=== PATIENT | female | born 1985 | race Caucasian/White ===

== ENCOUNTER 2019-04-22 13:30 | Inpatient (IN) | payer OTHER ==
[~2019-04-22] VITALS: Ht 157.5 cm; Wt 86.0 kg
[2019-04-22] MEDS ORDERED: PREN1TAB60 PO (13:48)
[2019-04-22] MEDS ORDERED: ASPI-515 PO (13:48)
[2019-04-22] MEDS ORDERED: CALC200T3 PO (13:48)
[2019-04-22] MEDS ORDERED: CALC1CAP8 PO (13:48)
[2019-04-22] MEDS ORDERED: FOLI-17 PO (13:48)
[2019-04-22 13:49] VITALS: BP 112/69
[2019-04-22] MEDS ORDERED: BETAMETHASONE 6 MG/ML, 5ML IM ONE (14:23)
[2019-04-22] MEDS: BETAMETHASONE 6 MG/ML, 5ML IM SCH (14:29)
[2019-04-22] MEDS ORDERED: DOCUSATE 100 MG CAPSULE PO PRN (14:30)
[2019-04-22] MEDS ORDERED: CALCIUM CARBONATE 500 MG TAB.CHEW PO PRN (14:30)
[2019-04-22 17:58] LABS: BASOPHILS # (AUTO) 0.01 x10^3/uL (0-0.1); BASOPHILS % (AUTO) 0 % (0-1); EOSINOPHILS # (AUTO) 0.01 x10^3/uL (0-0.4); EOSINOPHILS % (AUTO) 0 % (1-7); LYMPHOCYTES # (AUTO) 0.83 x10^3/uL (1-3.4); LYMPHOCYTES % (AUTO) 7 % (22-44); MD NO; MEAN CORPUSCULAR HEMOGLOBIN 31.3 pg (27.0-34.8); MEAN CORPUSCULAR HGB CONC 33.2 g/dL (32.4-35.8); MEAN CORPUSCULAR VOLUME 94.2 fL (80-100); MEAN PLATELET VOLUME 10.2 fL (7.4-10.4); MONOCYTES # (AUTO) 0.19 x10^3/uL (0.2-0.8); MONOCYTES % (AUTO) 2 % (2-9); NEUTROPHILS # (AUTO) 10.31 x10^3/uL (1.8-6.8); NEUTROPHILS % (AUTO) 91 % (42-75); PLATELET COUNT 183 x10^3/uL (130-400); RED BLOOD COUNT 4.15 x10^6/uL (3.82-5.3); RED CELL DISTRIBUTION WIDTH 14.1 % (9.6-15.2)
[2019-04-22] MEDS: SODIUM CHLORIDE FLUSH 3ML SYRINGE IVF SCH (21:00)
[2019-04-22 21:26] LABS: MICROSCOPIC NOT IND
[2019-04-23] MEDS ORDERED: ACETAMINOPHEN 325 MG TABLET ONE (01:49)
[2019-04-23] MEDS ORDERED: ACETAMINOPHEN 325 MG TABLET PO ONE (02:00)
[2019-04-23] MEDS ORDERED: TERBUTALINE 1 MG/ML, 1ML SQ ONE (07:30)
[2019-04-23] MEDS ORDERED: PRENATAL VIT/IRON/FA 1 EACH TABLET ONE (08:21)
[2019-04-23] MEDS ORDERED: ASPIRIN 81 MG TABLET EC ONE (08:21)
[2019-04-23] MEDS ORDERED: ASPIRIN 81 MG TABLET CHEW ONE (08:29)
[2019-04-23] MEDS: SODIUM CHLORIDE FLUSH 3ML SYRINGE IVF SCH (08:35)
[2019-04-23] MEDS ORDERED: PRENATAL VIT/IRON/FA 1 EACH TABLET PO SCH (09:00)
[2019-04-23] MEDS ORDERED: ASPIRIN 81 MG TABLET CHEW PO SCH (09:00)
[2019-04-23 09:45] LABS: CLUE CELLS NONE SEEN (NONE SEEN); WET PREP WBCS MODERATE (FEW)
[2019-04-23] MEDS ORDERED: CALCIUM CARBONATE 500 MG TAB.CHEW ONE (10:06)
[2019-04-23 10:17] LABS: FREE T4 (FREE THYROXINE) 0.99 ng/dL (0.76-1.46)
[2019-04-23] MEDS: BETAMETHASONE 6 MG/ML, 5ML IM SCH (14:28)
== END 2019-04-23 16:17 | disposition home or self-care (01) | DRG 832 ==
LOC: LDIP 13:30
PROVIDERS: ADMIT Obstetrics & Gynecology; ATTEND Obstetrics & Gynecology
DX: O36.832 Maternal care for abnormalities of the fetal heart rate or rhythm, second trimester (principal); O44.42 Low lying placenta NOS or without hemorrhage, second trimester; O30.032 Twin pregnancy, monochorionic/diamniotic, second trimester; O36.5922 Maternal care for other known or suspected poor fetal growth, second trimester, fetus 2; O43.192 Other malformation of placenta, second trimester; Z3A.26 26 weeks gestation of pregnancy
CPT/HCPCS: 36415; 76817; 81003; 84439; 84443; 85025; 86592; 86850; 86900; 87081; 87086; 87210; 87808; G0378; J0702

== ENCOUNTER 2019-05-13 12:57 | Observation (INO) | payer OTHER ==
[~2019-05-13] VITALS: Ht 157.5 cm; Wt 87.7 kg
[~2019-05-13 12:57] MED LIST: ASPI-515 PO; CALC1CAP8 PO; CALC200T3 PO; FOLI-17 PO; PREN1TAB60 PO
[2019-05-13 13:43] LABS: MICROSCOPIC NOT IND
[2019-05-13] MEDS ORDERED: TERBUTALINE 1 MG/ML, 1ML ONE (15:09)
[2019-05-13 15:30] VITALS: BP 122/64
[2019-05-13] MEDS ORDERED: LACTATED RINGERS 500 ML IVBOLUS ONE (15:30)
[2019-05-13] MEDS ORDERED: TERBUTALINE 1 MG/ML, 1ML SQ ONE (15:30)
[2019-05-13] MEDS ORDERED: PLEASE ENTER HEIGHT AND WEIGHT MC SCH (15:30)
[2019-05-13] MEDS ORDERED: LACTATED RINGERS 1,000 ML IVBOLUS ONE (18:30)
== END 2019-05-13 19:55 | disposition home or self-care (01) ==
LOC: LDOP 12:57 → LDIP 14:37
PROVIDERS: ADMIT Obstetrics & Gynecology; ATTEND Obstetrics & Gynecology
DX: O36.5930 Maternal care for other known or suspected poor fetal growth, third trimester, not applicable or unspecified (principal); O99.89 Other specified diseases and conditions complicating pregnancy, childbirth and the puerperium; O30.033 Twin pregnancy, monochorionic/diamniotic, third trimester; M54.5 Low back pain; Z3A.29 29 weeks gestation of pregnancy; Z79.899 Other long term (current) drug therapy
CPT/HCPCS: 59025; 81003; 87086; 96372; 99211; G0378; J3105; J7120; 96360; 96361; G0463

== ENCOUNTER 2019-05-15 13:21 | Outpatient (CLI) | payer OTHER ==
[~2019-05-15] VITALS: Ht 157.5 cm; Wt 87.7 kg
[2019-05-15] MEDS ORDERED: ONDANSETRON ODT 4 MG ONE (14:07)
[2019-05-15 14:11] VITALS: BP 109/60
[2019-05-15] MEDS ORDERED: ONDANSETRON ODT 4 MG PO PRN (14:30)
[2019-05-15] MEDS ORDERED: PLEASE ENTER HEIGHT AND WEIGHT MC SCH (14:30)
[2019-05-15 14:42] LABS: MICROSCOPIC NOT IND
[2019-05-15] MEDS ORDERED: TERBUTALINE 1 MG/ML, 1ML SQ PRN (15:30)
[2019-05-15] MEDS ORDERED: ONDA4TAB7 PO (16:20)
== END 2019-05-15 15:30 | disposition home or self-care (01) ==
LOC: LDOP 13:21
PROVIDERS: ATTEND Obstetrics & Gynecology
DX: O30.033 Twin pregnancy, monochorionic/diamniotic, third trimester (principal); O26.893 Other specified pregnancy related conditions, third trimester; R11.2 Nausea with vomiting, unspecified; N89.5 Stricture and atresia of vagina; Z3A.30 30 weeks gestation of pregnancy
CPT/HCPCS: 59025; 81003; 87086; 99211; Q0162; G0463

== ENCOUNTER 2019-05-21 11:22 | Inpatient (IN) | payer OTHER ==
[~2019-05-21] VITALS: Ht 157.5 cm; Wt 87.9 kg
[~2019-05-21 11:22] MED LIST changes: +ONDA4TAB7 PO
[2019-05-21 11:37] VITALS: BP 114/74
[2019-05-21] MEDS ORDERED: CALCIUM GLUCONATE 4.6 MEQ/10 ML IV PRN (13:00)
[2019-05-21] MEDS ORDERED: MAGNESIUM SULFATE PMX 4GM/100M 100 ML IVPB ONE (13:00)
[2019-05-21] MEDS ORDERED: AZITHROMYCIN 500 MG TABLET PO ONE ×2 (13:00→15:30)
[2019-05-21] MEDS ORDERED: MAGNESIUM SULFATE PMX 2GM/50ML 50 ML IVPB ONE (13:00)
[2019-05-21] MEDS: LACTATED RINGERS 1,000 ML IV PRN (13:20)
[2019-05-21 13:38] LABS: BASOPHILS # (AUTO) 0.04 x10^3/uL (0-0.1); BASOPHILS % (AUTO) 0 % (0-1); EOSINOPHILS # (AUTO) 0.15 x10^3/uL (0-0.4); EOSINOPHILS % (AUTO) 1 % (1-7); LYMPHOCYTES # (AUTO) 1.54 x10^3/uL (1-3.4); LYMPHOCYTES % (AUTO) 14 % (22-44); MD NO; MEAN CORPUSCULAR HEMOGLOBIN 31.2 pg (27.0-34.8); MEAN CORPUSCULAR HGB CONC 33.4 g/dL (32.4-35.8); MEAN CORPUSCULAR VOLUME 93.5 fL (80-100); MEAN PLATELET VOLUME 11.2 fL (7.4-10.4); MONOCYTES # (AUTO) 0.89 x10^3/uL (0.2-0.8); MONOCYTES % (AUTO) 8 % (2-9); NEUTROPHILS # (AUTO) 8.36 x10^3/uL (1.8-6.8); NEUTROPHILS % (AUTO) 76 % (42-75); PLATELET COUNT 184 x10^3/uL (130-400); RED BLOOD COUNT 4.51 x10^6/uL (3.82-5.3); RED CELL DISTRIBUTION WIDTH 13.3 % (9.6-15.2)
[2019-05-21] MEDS: MAGNESIUM SULF. PMX 20GM/500ML 500 ML IV SCH ×2 (13:38→20:36)
[2019-05-21] MEDS ORDERED: BETAMETHASONE 6 MG/ML, 5ML IM ONE (14:03)
[2019-05-21] MEDS: BETAMETHASONE 6 MG/ML, 5ML IM SCH (14:23)
[2019-05-21] MEDS: AMPICILLIN 2 GM in SODIUM CHLORIDE 0.9% 100 ML IV SCH ×2 (14:56→22:21)
[2019-05-21] MEDS ORDERED: AZITHROMYCIN 500 MG TABLET ONE (15:06)
[2019-05-21 21:47] VITALS: BP 108/58
[2019-05-22] MEDS: LACTATED RINGERS 1,000 ML IV PRN ×2 (01:45→15:19)
[2019-05-22] MEDS: AMPICILLIN 2 GM in SODIUM CHLORIDE 0.9% 100 ML IV SCH ×4 (03:53→21:34)
[2019-05-22] MEDS: MAGNESIUM SULF. PMX 20GM/500ML 500 ML IV SCH (05:24)
[2019-05-22] MEDS ORDERED: ASPI-515 PO (09:56)
[2019-05-22] MEDS ORDERED: ASPIRIN 81 MG TABLET CHEW PO SCH (10:00)
[2019-05-22] MEDS ORDERED: ASPIRIN 81 MG TABLET CHEW ONE (10:02)
[2019-05-22] MEDS ORDERED: FOLI0.4T2 PO (10:08)
[2019-05-22] MEDS: BETAMETHASONE 6 MG/ML, 5ML IM SCH (14:18)
[2019-05-22] MEDS ORDERED: DIPHENHYDRAMINE 25 MG CAPSULE PO PRN (20:30)
[2019-05-22] MEDS: PRENATAL VIT/IRON/FA 1 EACH TABLET PO SCH (21:00)
[2019-05-22] MEDS ORDERED: DIPHENHYDRAMINE 25 MG CAPSULE ONE (21:24)
[2019-05-22] MEDS ORDERED: DOCUSATE 100 MG CAPSULE ONE (21:24)
[2019-05-22] MEDS: DOCUSATE 100 MG CAPSULE PO PRN (21:36)
[2019-05-23] MEDS: AMPICILLIN 2 GM in SODIUM CHLORIDE 0.9% 100 ML IV SCH (03:51)
[2019-05-23 06:03] LABS: BASOPHILS # (AUTO) 0.02 x10^3/uL (0-0.1); BASOPHILS % (AUTO) 0 % (0-1); EOSINOPHILS % (AUTO) 0 % (1-7); LYMPHOCYTES # (AUTO) 0.96 x10^3/uL (1-3.4); LYMPHOCYTES % (AUTO) 8 % (22-44); MD NO; MEAN CORPUSCULAR HEMOGLOBIN 31.5 pg (27.0-34.8); MEAN CORPUSCULAR HGB CONC 33.6 g/dL (32.4-35.8); MEAN CORPUSCULAR VOLUME 93.6 fL (80-100); MEAN PLATELET VOLUME 9.4 fL (7.4-10.4); MONOCYTES # (AUTO) 0.81 x10^3/uL (0.2-0.8); MONOCYTES % (AUTO) 7 % (2-9); NEUTROPHILS # (AUTO) 9.87 x10^3/uL (1.8-6.8); NEUTROPHILS % (AUTO) 85 % (42-75); PLATELET COUNT 168 x10^3/uL (130-400); RED BLOOD COUNT 3.78 x10^6/uL (3.82-5.3); RED CELL DISTRIBUTION WIDTH 13.7 % (9.6-15.2)
[2019-05-23] MEDS: LACTATED RINGERS 1,000 ML IV PRN (06:09)
[2019-05-23] MEDS ORDERED: MAGNESIUM SULF. PMX 20GM/500ML 500 ML IV SCH (06:22)
[2019-05-23] MEDS ORDERED: MAGNESIUM SULFATE PMX 4GM/100M 100 ML ONE (06:23)
[2019-05-23] MEDS ORDERED: MAGNESIUM SULFATE PMX 2GM/50ML 50 ML ONE (06:23)
[2019-05-23] MEDS ORDERED: MAGNESIUM SULFATE PMX 2GM/50ML 50 ML IVPB ONE (06:30)
[2019-05-23] MEDS ORDERED: MAGNESIUM SULFATE PMX 4GM/100M 100 ML IVPB ONE (06:30)
[2019-05-23] MEDS ORDERED: METOCLOPRAMIDE 5 MG/ML, 2ML ONE (07:20)
[2019-05-23] MEDS ORDERED: OXYTOCIN 30U/ 0.9% NaCL 500ML 500 ML ONE ×2 (07:20→10:56)
[2019-05-23] MEDS ORDERED: SODIUM CITRATE/CITRIC ACID 30 ML UDC ONE (07:20)
[2019-05-23] MEDS ORDERED: NEWBORN KIT ONE (07:33)
[2019-05-23] MEDS ORDERED: FENTANYL PF 100 MCG/2ML ONE (08:27)
[2019-05-23] MEDS ORDERED: ONDANSETRON 2MG/ML, 2ML ONE (08:27)
[2019-05-23] MEDS ORDERED: HYDROmorphone 2 MG/ML, 1ML ONE (08:27)
[2019-05-23] MEDS ORDERED: CEFAZOLIN 1,000 MG ONE (08:27)
[2019-05-23] MEDS ORDERED: OXYTOCIN 10 UNITS/ML, 1ML ONE (08:27)
[2019-05-23] MEDS ORDERED: METOCLOPRAMIDE 5 MG/ML, 2ML IV ONE (08:30)
[2019-05-23] MEDS ORDERED: LACTATED RINGERS 1,000 ML IVBOLUS ONE (08:30)
[2019-05-23] MEDS ORDERED: SODIUM CITRATE/CITRIC ACID 30 ML UDC PO ONE (08:30)
[2019-05-23] MEDS: PRENATAL VIT/IRON/FA 1 EACH TABLET PO SCH (09:00)
[2019-05-23] MEDS: OXYTOCIN 30U/ 0.9% NaCL 500ML 500 ML IV SCH ×2 (09:48→20:03)
[2019-05-23] MEDS: LACTATED RINGERS 1,000 ML IV SCH ×4 (09:48→20:03)
[2019-05-23] MEDS ORDERED: MORPHINE SULFATE 4 MG/ML, 1ML IVPush PRN (10:30)
[2019-05-23] MEDS ORDERED: SIMETHICONE 80 MG CHEW TAB PO PRN (10:30)
[2019-05-23] MEDS ORDERED: OXYcodone/APAP 5/325MG TABLET PO PRN (10:30)
[2019-05-23] MEDS ORDERED: DOCUSATE 100 MG CAPSULE PO PRN (10:30)
[2019-05-23] MEDS ORDERED: MISOPROSTOL 200 MCG TABLET PR PRN (10:30)
[2019-05-23] MEDS ORDERED: METHYLERGONOVINE 0.2 MG/ML IM PRN (10:30)
[2019-05-23] MEDS ORDERED: OXYcodone IR 5MG TABLET PO PRN (10:30)
[2019-05-23] MEDS ORDERED: CALCIUM CARBONATE 500 MG TAB.CHEW PO PRN (10:30)
[2019-05-23] MEDS ORDERED: ONDANSETRON 2MG/ML, 2ML IV PRN (10:30)
[2019-05-23] MEDS ORDERED: morphine SULFATE 10 MG/ML, 1ML IV PRN (10:30)
[2019-05-23] MEDS ORDERED: KETOROLAC 30 MG/1 ML ONE (10:56)
[2019-05-23] MEDS: KETOROLAC 30 MG/1 ML IV SCH ×2 (10:58→19:15)
[2019-05-23 13:00] VITALS: BP 102/64
[2019-05-23] MEDS ORDERED: FUROSEMIDE 20 MG/2 ML IV ONE ×2 (17:30→18:30)
[2019-05-23 18:20] VITALS: BP 101/65
[2019-05-23] MEDS ORDERED: AMOXICILLIN/CLAV 875-125MG TABLET PO SCH (19:00)
[2019-05-23 19:20] VITALS: BP 104/68
[2019-05-23] MEDS ORDERED: FUROSEMIDE 20 MG TABLET PO SCH (22:00)
[2019-05-24 00:54] VITALS: BP 115/65
[2019-05-24] MEDS: KETOROLAC 30 MG/1 ML IV SCH ×4 (01:33→21:00)
[2019-05-24] MEDS: LACTATED RINGERS 1,000 ML IV SCH ×5 (02:03→18:03)
[2019-05-24 04:01] VITALS: BP 104/68
[2019-05-24] MEDS: OXYTOCIN 30U/ 0.9% NaCL 500ML 500 ML IV SCH ×2 (04:09→16:03)
[2019-05-24] MEDS: PRENATAL VIT/IRON/FA 1 EACH TABLET PO SCH (07:29)
[2019-05-24] MEDS: DOCUSATE 100 MG CAPSULE PO PRN ×2 (07:29→21:54)
[2019-05-24 07:32] VITALS: BP 115/78
[2019-05-24 12:00] VITALS: BP 118/77
[2019-05-24 19:15] VITALS: BP 108/69
[2019-05-24] MEDS: IBUPROFEN 600 MG TABLET PO PRN (21:54)
[2019-05-25] MEDS: OXYTOCIN 30U/ 0.9% NaCL 500ML 500 ML IV SCH ×3 (02:03→22:03)
[2019-05-25] MEDS: LACTATED RINGERS 1,000 ML IV SCH ×6 (02:03→22:03)
[2019-05-25] MEDS: KETOROLAC 30 MG/1 ML IV SCH ×2 (03:00→09:00)
[2019-05-25 07:15] VITALS: BP 111/71
[2019-05-25] MEDS: DOCUSATE 100 MG CAPSULE PO PRN ×2 (07:38→21:29)
[2019-05-25] MEDS: PRENATAL VIT/IRON/FA 1 EACH TABLET PO SCH (07:38)
[2019-05-25] MEDS: IBUPROFEN 600 MG TABLET PO PRN ×3 (09:18→21:29)
[2019-05-25 19:30] VITALS: BP 114/78
[2019-05-25 21:23] LABS: BASOPHILS # (AUTO) 0.04 x10^3/uL (0-0.1); BASOPHILS % (AUTO) 0 % (0-1); EOSINOPHILS # (AUTO) 0.32 x10^3/uL (0-0.4); EOSINOPHILS % (AUTO) 2 % (1-7); LYMPHOCYTES # (AUTO) 2.48 x10^3/uL (1-3.4); LYMPHOCYTES % (AUTO) 19 % (22-44); MD NO; MEAN CORPUSCULAR VOLUME 94.1 fL (80-100); MEAN PLATELET VOLUME 9.8 fL (7.4-10.4); MONOCYTES # (AUTO) 1.06 x10^3/uL (0.2-0.8); MONOCYTES % (AUTO) 8 % (2-9); NEUTROPHILS # (AUTO) 9.47 x10^3/uL (1.8-6.8); NEUTROPHILS % (AUTO) 71 % (42-75); PLATELET COUNT 217 x10^3/uL (130-400); RED BLOOD COUNT 4.41 x10^6/uL (3.82-5.3); RED CELL DISTRIBUTION WIDTH 13.8 % (9.6-15.2)
[2019-05-26] MEDS: LACTATED RINGERS 1,000 ML IV SCH (02:03)
[2019-05-26] MEDS: IBUPROFEN 600 MG TABLET PO PRN ×3 (04:39→15:57)
[2019-05-26 09:00] VITALS: BP 112/74
[2019-05-26] MEDS ORDERED: HYDROCORTISONE OINT 2.5%, 20GM TP PRN (09:30)
[2019-05-26] MEDS: PRENATAL VIT/IRON/FA 1 EACH TABLET PO SCH (09:51)
[2019-05-26] MEDS: DOCUSATE 100 MG CAPSULE PO PRN (09:51)
[2019-05-26 19:20] VITALS: BP 111/74
[2019-05-27] MEDS: IBUPROFEN 600 MG TABLET PO PRN ×2 (05:44→12:49)
[2019-05-27 08:30] VITALS: BP 115/78
[2019-05-27] MEDS: PRENATAL VIT/IRON/FA 1 EACH TABLET PO SCH (09:00)
[2019-05-27] MEDS ORDERED: DOCU-131 PO (10:19)
[2019-05-27] MEDS ORDERED: OXYC-302 PO (10:19)
[2019-05-27] MEDS ORDERED: IBUP-1222 PO (10:19)
== END 2019-05-27 15:15 | disposition home or self-care (01) | DRG 787 ==
LOC: LDOP 11:22 → LDIP 13:00 → 2NW 05-23 12:33
PROVIDERS: ADMIT Obstetrics & Gynecology; ATTEND Obstetrics & Gynecology
PROC: 10D00Z1 Extraction of Products of Conception, Low, Open Approach (ICD-10-PCS; principal; 2019-05-23)
DX: O42.913 Preterm premature rupture of membranes, unspecified as to length of time between rupture and onset of labor, third trimester (principal); O44.43 Low lying placenta NOS or without hemorrhage, third trimester; J81.1 Chronic pulmonary edema; Z37.2 Twins, both liveborn; Z3A.31 31 weeks gestation of pregnancy; Z83.3 Family history of diabetes mellitus; O30.033 Twin pregnancy, monochorionic/diamniotic, third trimester; O36.5932 Maternal care for other known or suspected poor fetal growth, third trimester, fetus 2; O99.284 Endocrine, nutritional and metabolic diseases complicating childbirth; E87.70 Fluid overload, unspecified; O76 Abnormality in fetal heart rate and rhythm complicating labor and delivery; O99.344 Other mental disorders complicating childbirth; F32.9 Major depressive disorder, single episode, unspecified; Z79.82 Long term (current) use of aspirin
CPT/HCPCS: 36415; 71045; 82803; 83735; 84112; 84132; 85025; 86592; 86850; 86900; 88307; G0378; J0290; J0690; J0702; J1170; J1885; J2405; J3010; J1940; J2590; J2765; J3475; J7120; Q0163